=== PATIENT | male | born 1990 | race Two or more races ===

== ENCOUNTER 2019-10-15 21:01 | Emergency (ER) | payer OTHER ==
[~2019-10-15] VITALS: Ht 170.2 cm; Wt 99.8 kg
[2019-10-15 21:09] VITALS: BP 135/85
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
--- NOTE | 2019-10-15 21:45 | NUR ---
ED Nurse Note: PATIENT MEDICATED; TOLERATED WELL. MAXIMO WRAPPED ANKLE.
[2019-10-15] MEDS ORDERED: NAPROXEN250 MG ORAL (21:55)
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
[2019-10-15] MEDS ORDERED: Tetanus/Diptheria/Pertussis IM ONE (22:00)
[2019-10-15] MEDS ORDERED: Acetaminophen 500mg (ES) tab ORAL ONE (22:00)
[2019-10-15 22:10] VITALS: BP 128/85
--- NOTE | 2019-10-15 22:10 | NUR ---
ER DISCHARGE NOTE: Patient is cleared to be discharged per ERMD, pt is aox4, on room air, with stable vital signs. pt under lasd custody. pt was given dc and prescription instructions, pt was able to verbalize understanding, pt id band removed. pt is able to ambulate with steady gait. pt took all belongings.
--- NOTE | 2019-10-16 18:51 | Diagnostic Imaging Report ---
Indication: Pain, trauma Technique: 3 views of the right ankle Comparison: none Findings: No acute fractures. No dislocations. The joint spaces are preserved. Impression: Negative
--- NOTE | 2019-10-16 18:51 | Diagnostic Imaging Report ---
Indication: Foot pain and trauma Technique: 3 views right foot Comparison: None Findings: There is hallux valgus and metatarsus adductus. No acute fractures. No dislocations. The joint spaces are preserved. Impression: No acute process
--- NOTE | 2019-10-16 18:52 | Diagnostic Imaging Report ---
Indication: Pain, trauma Technique: 3 views right hand Comparison: none Findings: No acute fractures. No dislocations. The joint spaces are preserved. Impression: Negative
== END 2019-10-15 22:10 ==
LOC: EMR 21:17
DX: S90.01XA Contusion of right ankle, initial encounter (principal); S60.041A Contusion of right ring finger without damage to nail, initial encounter; W23.0XXA Caught, crushed, jammed, or pinched between moving objects, initial encounter; Y92.9 Unspecified place or not applicable; Z23 Encounter for immunization
CPT/HCPCS: 90471; 90715; 99284